=== PATIENT | female | born 1990 | race Caucasian/White ===

== ENCOUNTER → 2020-11-08 10:11 | Outpatient (BNVA) | payer BC, SELFPAY | PROVIDERS: PCP Internal Medicine; Visit Provider Hospitalist | DX: Z76.89 Persons encountering health services in other specified circumstances (principal) ==

== ENCOUNTER 2021-06-26 07:43 | Outpatient (REF) | payer OTHER, SELFPAY ==
--- NOTE | 2021-06-26 17:36 | PFT_ITS ---
FLOWS: FEV1 65% of predicted at 1.79 L. FVC 69% of predicted at 2.21 L. FEV1 to FVC ratio of 0.81. No bronchodilator response except in small to medium airways. LUNG VOLUMES: Total lung capacity 70% of predicted at 3.05 L. Residual volume 81% of predicted at 0.90 L. Slow vital capacity 67% of predicted at 2.15 L. Expiratory reserve volume 65% of predicted at 0.78 L. Diffusion capacity is mildly decreased, diffusion capacity corrects to normal after adjustment for alveolar ventilation. IMPRESSION: Moderate restrictive ventilatory defect with no bronchodilator response except in small to medium airways. MD TATIANA Park/MODL / [id number]
== END 2021-06-26 07:44 | disposition home or self-care (01) ==
LOC: HO.RESP 07:43
PROVIDERS: PCP Internal Medicine; Visit Provider Hospitalist
DX: J45.909 Unspecified asthma, uncomplicated (principal)
CPT/HCPCS: 94060; 94727; 94729

== ENCOUNTER → 2021-07-25 08:57 | Outpatient (BNVA) | payer OTHER, SELFPAY | PROVIDERS: PCP Internal Medicine; Visit Provider Hospitalist ==

== ENCOUNTER → 2022-03-25 09:07 | Outpatient (BNVA) | payer OTHER, SELFPAY | PROVIDERS: PCP Internal Medicine; Visit Provider Hospitalist | DX: J47.9 Bronchiectasis, uncomplicated (principal); J45.909 Unspecified asthma, uncomplicated; D84.821 Immunodeficiency due to drugs; Z79.899 Other long term (current) drug therapy | CPT/HCPCS: 94010 ==

== ENCOUNTER 2024-11-10 13:16 | Outpatient (REF) | payer OTHER, SELFPAY ==
--- OUTSIDE RECORDS SUMMARY | 2024-11-10 14:39 | XMS_ITS ---
Author Name [facility] Organization Unknown Problems Problem Status Onset Date Problem Type Date of Resoluti on Source Complication of transplanted kidney, unspecified complication [facility]
== END 2024-11-10 13:17 | disposition home or self-care (01) ==
LOC: HO.LNP 13:16
PROVIDERS: PCP Student in an Organized Health Care Education/Training Program; Visit Provider Hospitalist
DX: J47.9 Bronchiectasis, uncomplicated (principal)
CPT/HCPCS: 87070; 87077; 87186; 87205

== ENCOUNTER 2024-11-10 13:16 | Outpatient (AMB) | payer OTHER, SELFPAY ==
--- NOTE | 2024-11-10 13:34 | A.OFFVIS_ITS ---
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 The patient is a 34-year-old woman with a known history of renal transplant in addition to bronchiectasis asthma. Her asthma has been very stable for many years. Her bronchiectasis as well. She was able to deescalate her respiratory therapy. Although back in the fall she developed COVID-19. After she developed a worsening cough congested in nature. She did have a chest x-ray at [facility] which I personally reviewed demonstrating some bronchiectatic changes and some congestion primarily in the right hemithorax on the base. The patient was kept her albuterol inhalers. She continues have this cough which is productive in nature moderate severity. Yellowish sputum. Denies any hemoptysis. In the office she does have significant rhonchi right more than left and also some wheezing she did receive a breathing treatment will send a sputum culture. The patient will require treatment for bronchiectasis exacerbation at this time. FORMERLY [facility], [facility] Medical History (Updated 11/13/24 @ 17:07 by Benjie Edouard MD) Immunosuppression due to drug therapy Bronchiectasis Asthma Surgical History (Updated 11/10/20 @ 22:58 by Benjie Edouard MD) Renal transplant recipient Social History Patient Tobacco Use Status: Never used Tobacco Review of Systems Const Denies night sweats ENT Denies change in voice, Denies lip swelling, Denies mouth pain, Reports nasal congestion, Reports nasal discharge and Denies tongue swelling Card Denies chest pain Resp Reports chest congestion, Reports cough and Reports wheezing GI Denies abdominal pain Musc Denies no additional complaints Neuro Denies Neuro-related abnormal movements Psych Denies no additional complaints Te[place]/Lymph Denies easy bleeding and Denies lymphadenopathy Aller/Immun Denies lip swelling, Denies tongue swelling and Reports wheezing Physical Exam Vital Signs: Last Vital Signs Pulse 84 11/10/24 13:35 BP 118/82 11/10/24 13:35 Pulse Ox 96 11/10/24 13:35 Oxygen Delivery Method Room Air 11/10/24 13:35 BMI result Body Mass Index 27.4 Const General: alert HEENT Head: Yes normocephalic Neck Neck: Yes normal visual inspection, Yes full ROM and Yes no lymphadenopathy Chest Chest palpation & inspection: normal inspection of the chest Resp Effort & Inspection: prolonged expiratory phase Auscultation: rhonchi, no wheezes and diminished lung sounds Cardio Rate: regular rate Rhythm: regular rhythm Heart sounds: S1 normal heart sound present and S2 normal heart sound present GI Palpation (GI): Soft to palpation and nontender Auscultation: normal bowel sounds Skin General skin exam: rashes and/or lesions noted Assessment & Plan Assessment & Plan (1) Bronchiectasis: Code(s): J47.9 - Bronchiectasis, uncomplicated Category: Medical Qualifiers: Bronchiectasis type: with acute exacerbation Qualified Code(s): J47.1 - Bronchiectasis with (acute) exacerbation (2) Asthma: Code(s): J45.909 - Unspecified asthma, uncomplicated Category: Medical Qualifiers: Asthma severity: moderate Asthma persistence: persistent Asthma complication type: with acute exacerbation Qualified Code(s): J45.41 - Moderate persistent asthma with (acute) exacerbation (3) Immunosuppression due to drug therapy: Code(s): D84.821 - Immunodeficiency due to drugs; Z79.899 - Other supervisor intermediates (current) drug therapy Category: Medical Plan Continue Symbicort as needed conitnue Singulair short-acting beta agonist as needed start Azithromycin sputum cx CPT with percussion vest F/U 2-3 months Orders: Orders Sputum Cult + Gram stain 11/10/24 J47.9 - Bronchiectasis, uncomplicated Coding Level of Care Code Est Pt Level 4 (49069) Diagnoses Bronchiectasis with acute exacerbation J47.1 Bronchiectasis type: with acute exacerbation Moderate persistent asthma with acute exacerbation J45.41 Asthma severity: moderate Asthma persistence: persistent Asthma complication type: with acute exacerbation Immunosuppression due to drug therapy D84.821; Z79.899 Time Spent (min) 17
[2024-11-10 13:35] VITALS: BP 118/82; PULSE 84; O2SAT 96; BMI 27.4
== END 2024-11-10 14:39 | disposition home or self-care (01) ==
PROVIDERS: PCP Student in an Organized Health Care Education/Training Program; Visit Provider Hospitalist
DX: J47.1 Bronchiectasis with (acute) exacerbation (principal); J45.41 Moderate persistent asthma with (acute) exacerbation; D84.821 Immunodeficiency due to drugs; Z79.899 Other long term (current) drug therapy
CPT/HCPCS: 99214